=== PATIENT | male | born 1990 | race Hispanic/Latino ===

== ENCOUNTER 2018-01-30 21:00 | Emergency (ER) | payer OTHER ==
[2018-01-30 21:36] VITALS: BP 149/85; PULSE 94; RESP 16; TEMP 98.6; O2SAT 100
--- NOTE | 2018-01-30 22:03 | ED PDOC ---
Lower Extremity Pain/Injury Time Seen by Provider: 01/30/18 21:37 Chief Complaint (Nursing): Lower Extremity Problem/Injury Chief Complaint (Provider): Lower Extremity Problem/Injury History Per: Patient History/Exam Limitations: no limitations Additional Complaint(s): Patient is a 27 year old male who reports injuring his right calf when he was playing football, just prior to arrival. He states he wanted to push off and start to run and felt a pulling sensation to his calf. Patient has difficulty ambulating since injury and has taken no medication prior to arrival. He has a history of calf strains secondary to running track during his school year and states symptoms are similar to what he has felt in the past. Otherwise: (-) numbness, (-) other injury. PMD: No provider Past Medical History Reviewed: Historical Data, Nursing Documentation, Vital Signs Vital Signs: Last Vital Signs Temp 98.6 F 01/30/18 21:35 Pulse 94 H 01/30/18 21:35 Resp 16 01/30/18 21:35 BP 149/85 01/30/18 21:35 Pulse Ox 100 01/30/18 21:35 - Medical History PMH: No Chronic Diseases Other PMH: Calf strains - Surgical History Surgical History: Hernia Repair Other surgeries: deviated septum repair - Family History Family History: States: Unknown Family Hx - Home Medications Home Medications: Ambulatory Orders Medication Instructions Recorded Acetaminophen [Acetaminophen 8 650 mg PO Q8 PRN #21 tablet.er 01/30/18 Hour] Cyclobenzaprine [Cyclobenzaprine 10 mg PO Q8 PRN #12 tab 01/30/18 HCl] RX: Ibuprofen [Motrin Tab] 800 mg PO Q8 PRN #21 tab 01/30/18 - Allergies Allergies/Adverse Reactions: Allergies Allergy/AdvReac Type Severity Reaction Status Date / Time No Known Allergies Allergy Verified 01/30/18 21:33 Review of Systems ROS Statement: Except As Marked, All Systems Reviewed And Found Negative Musculoskeletal: Positive for: Other (right calf pain) Physical Exam - Reviewed Nursing Documentation Reviewed: Yes Vital Signs Reviewed: Yes - Physical Exam Comments: GENERAL APPEARANCE: Patient is awake, alert, oriented x 3, in no acute distress. SKIN: Warm, dry; (-) cyanosis. NECK: Supple, FROM CHEST AND RESPIRATORY: (-) rales, (-) rhonchi, (-) wheezes; breath sounds equal bilaterally. Respirations even and nonlabored. HEART AND CARDIOVASCULAR: (-) irregularity EXTREMITIES: (+) calf tenderness to the mid right calf (-) edema (-) warmth (-) ecchymosis (-) palpable cord; (+) dorsal and plantar flexion of the foot intact (-) sharp test; (+) normal ROM of ankle and foot; (+) achilles tendon intact and non tender (+) distal pulses. Sensation intact throughout. NEURO AND PSYCH: Mental status as above. Speech: clear. (-) facial asymmetry (-) aphasia. - ECG O2 Sat by Pulse Oximetry: 100 (RA) Pulse Ox Interpretation: Normal Medical Decision Making Medical Decision Making: Initial Time: 21:50 Initial Impression: gastrocnemius tear vs. strain Initial Plan: --Flexiril 10 mg PO (Not driving home) --Toradol 30 mg IM --Right Tibia Fibula X-ray r/o avulsion injury 2245 Tib/FIb XR: (-) fracture Patient notified official radiology reading will be available within 24 hours and that he would be notified of any discrepancies via phone. Patient supplied with crutches and instructed on crutch walking. Carrington wrap applied to calf. NV intact after placement. RICE encouraged. On re-evaluation, patient reports improvement of symptoms. On exam, patient remains AAOx3, in no acute distress. Lungs clear to auscultation, cardiac RRR, repeat neuro exam shows no focal findings. Vitals stable. Lab/Diagnostic results d/w the patient in great detail. Diagnosis of gastrocnemius strain/partial tear d/w the patient. Based on history, exam and diagnostic results, plan will be for outpatient follow up with ortho. Patient instructed to follow-up with pmd / referral provided / the clinic in 1- 2 days without fail. Advised to take medication as prescribed. Return to the emergency room at any time for any new or worsening symptoms. Patient states he fully agrees with and understands discharge instructions. States that he agrees with the plan and disposition. Verbalized and repeated discharge instructions and plan. I have given the patient opportunity to ask any additional questions. Scribe Attestation: Documented by Robe Mcdowell, acting as a scribe for Diamond Kendrick Provider Scribe Attestation: All medical record entries made by the Scribe were at my direction and personally dictated by me. I have reviewed the chart and agree that the record accurately reflects my personal performance of the history, physical exam, medical decision making, and the department course for this patient. I have also personally directed, reviewed, and agree with the discharge instructions and disposition. Disposition - Clinical Impression Clinical Impression: Strain of calf muscle, Strain of right gastrocnemius muscle - Patient ED Disposition Is Patient to be Admitted: No Counseled Patient/Family Regarding: Studies Performed, Diagnosis, Need For Followup, Rx Given - Disposition Referrals: Live Reece III, MD [Staff Provider] - Disposition: Routine/Home Disposition Time: 22:50 Condition: STABLE Additional Instructions: The emergency medical care you received today was directed at your acute symptoms. If you were prescribed any medication, please fill it and take as directed. It may take several days for your symptoms to resolve. Return to the Emergency Department if your symptoms worsen, do not improve, or if you have any other problems. Please contact your doctor in 2 days for re-evaluation and follow up / or call one of the physicians/clinics you have been referred to that are listed on the Patient Visit Information form that is included in your discharge packet. Bring any paperwork you were given at discharge with you along with any medications you are taking to your follow up visit. Our treatment cannot replace ongoing medical care by a primary care provider (PCP) outside of the emergency department. Prescriptions: Acetaminophen [Acetaminophen 8 Hour] 650 mg PO Q8 PRN #21 tablet.er PRN Reason: Pain, Moderate (4-7) Cyclobenzaprine [Cyclobenzaprine HCl] 10 mg PO Q8 PRN #12 tab PRN Reason: Muscle Spasm RX: Ibuprofen [Motrin Tab] 800 mg PO Q8 PRN #21 tab PRN Reason: Pain, Moderate (4-7) Instructions: Muscle Strain (DC), Lower Extremity Muscle Strain, Calf Stretches Forms: [facility] (Bel[place]ian), [facility] ED School/Work Excuse Print Language: SERBIAN - POA Present On Arrival: None
--- NOTE | 2018-01-31 11:00 | RAD ---
Date of service: 01/30/2018 PROCEDURE: Radiographs of the right tibia and fibula. HISTORY: calf injury COMPARISON: None available TECHNIQUE: Frontal and lateral views obtained. FINDINGS: BONES: No fracture or destructive lesion. JOINT SPACES: Unremarkable. OTHER FINDINGS: None. IMPRESSION: Unremarkable radiographs of the right tibia and fibula.
== END 2018-01-30 23:18 | disposition home or self-care (01) ==
LOC: H.ER 21:00
DX: S86.111A Strain of other muscle(s) and tendon(s) of posterior muscle group at lower leg level, right leg, initial encounter (principal); X50.9XXA Other and unspecified overexertion or strenuous movements or postures, initial encounter; Y92.321 Football field as the place of occurrence of the external cause
CPT/HCPCS: 73590; 96372; 99285; J1885